=== PATIENT | male | born 1970 | race Caucasian/White ===

== ENCOUNTER → 2017-11-01 | Outpatient (CLI) | payer BC, OTHER | LOC: GMATM 12:07 | PROVIDERS: ATTEND Family Medicine | DX: E53.9 Vitamin B deficiency, unspecified (principal); E29.1 Testicular hypofunction; I10 Essential (primary) hypertension; M10.9 Gout, unspecified; E55.9 Vitamin D deficiency, unspecified ==

== ENCOUNTER 2018-12-02 15:17 | Emergency (ER) | payer BC, OTHER ==
[2018-12-02] MEDS ORDERED: ONDANSETRON INJ 4 MG/2 ML VIAL IV ONE (15:48)
[2018-12-02] MEDS ORDERED: ASPIRIN TABLET 325 MG TAB PO ONE (15:48)
[2018-12-02] MEDS ORDERED: SODIUM CHLORIDE 0.9% (FLUSH) 10 ML SYG IV PRN (15:48)
[2018-12-02] MEDS ORDERED: ONDANSETRON INJ 4 MG/2 ML VIAL ONE (16:01)
--- NOTE | 2018-12-02 16:01 | ED.PDOC ---
History of Present Illness - General Chief Complaint: Chest Pain/DE Stated Complaint: CHEST PAIN Time Seen by Provider: 12/02/18 15:57 Source: patient Exam Limitations: no limitations - History of Present Illness Initial Comments: PT PRESENTS TO THE ED FROM [facility] DUE TO SEVERAL WEEK HISTORY OF EXERTIONAL CHEST PAIN AND SOB. PT STATES THAT EKG PERFORMED AT [facility] WAS ABNORMAL AND PT WAS INSTRUCTED TO COME TO THE ED. PT DENIES SYMPTOMS AT THIS TIME. Timing/Duration: getting worse, intermittent Severity: moderate Location: substernal Activities at Onset: activity Prior Chest Pain/Cardiac Workup: stress test - 2007 Improving Factors: rest Worsening Factors: movement Nitro Today/Relief: no nitro taken today Aspirin Treatment Today: no aspirin today Associated Symptoms: shortness of breath Allergies/Adverse Reactions: Allergies NO KNOWN ALLERGY Allergy (Verified 12/02/18 15:51) Review of Systems - Review of Systems Constitutional: Denies: chills, fever EENTM: Denies: nose congestion, throat pain Respiratory: States: see HPI, short of breath. Denies: cough Cardiology: States: see HPI, chest pain, edema. Denies: palpitations Gastrointestinal/Abdominal: Denies: nausea, vomiting Genitourinary: Denies: dysuria, frequency Musculoskeletal: Denies: joint pain, joint swelling Skin: Denies: dryness, lesions Neurological: Denies: headache, numbness Endocrine: States: no symptoms reported Hematologic/Lymphatic: States: no symptoms reported Past Medical History (General) - Patient Medical History Hx Seizures: No Hx Stroke: No Hx Dementia: No Hx Asthma: No Hx of COPD: No Hx Cardiac Disorders: Yes Hx Congestive Heart Failure: No Hx Pacemaker: No Hx Hypertension: No Hx Thyroid Disease: No Hx Diabetes: No Hx Gastroesophageal Reflux: No Hx Renal Disease: No Hx Cancer: No Hx of HIV: No Hx Hepatitis C: No Hx MRSA: No Surgical History: other - Vaccination History Hx Tetanus, Diphtheria Vaccination: No Hx Influenza Vaccination: Yes Hx Pneumococcal Vaccination: No - Social History Hx Tobacco Use: No Hx Chewing Tobacco Use: No Hx Alcohol Use: No Hx Substance Use: No Hx Substance Use Treatment: No Hx Depression: No Feels Threatened In Home Enviroment: No Feels Threatened In a Relationship: No Hx Physical Abuse: No Hx Emotional Abuse: No Hx Suspected Abuse: No - Female History Patient is a Female of Child Bearing Age (10 -59 yrs old): No Patient : No Family Medical History - Family History Mother Family History: No Known Hx Family Asthma: No Hx Family Congestive Heart Failure: No Hx Family Hypertension: No Hx Family Stroke: No Physical Exam - Physical Exam General Appearance: Alert, Comfortable, No apparent distress, Well Developed, Well Groomed, Well Hydrated, Well Nourished Eyes, Ears, Nose, Throat Exam: normal ENT inspection Neck: full range of motion, supple Respiratory: lungs clear, normal breath sounds, no respiratory distress, no accessory muscle use Cardiovascular/Chest: regular rate, rhythm, no murmur Gastrointestinal/Abdominal: non tender, soft Extremity: non-tender, normal inspection, no pedal edema Neurologic: alert, normal mood/affect, oriented x 3 Skin Exam: normal color, warm/dry Progress - Progress Progress: 12/02/18 16:36 PT REMAINS CHEST PAIN FREE IN THE ED. LABS, DIAGNOSTICS AND PLAN DISCUSSED. WILL TRANSFER TO [facility] FOR CARDIOLOGY EVAL. - Results/Orders Results/Orders: Laboratory Tests 12/02/18 15:53 WBC 8.2 RBC 4.94 Hgb 15.3 Hct 44.6 MCV 90.2 MCH 31.1 H MCHC 34.4 RDW 12.9 Plt Count 183 MPV 8.7 Absolute Neuts (auto) 6.20 Absolute Lymphs (auto) 1.30 Absolute Monos (auto) 0.60 Absolute Eos (auto) 0.00 Absolute Basos (auto) 0.00 Neutrophils % 75.9 Lymphocytes % 16.0 L Monocytes % 7.3 Eosinophils % 0.3 L Basophils % 0.5 PT 9.7 INR 0.97 PTT (SP) 23.6 Sodium 139 Potassium 4.0 Chloride 108 Carbon Dioxide 22 Anion Gap 13.0 BUN 28 H Creatinine 0.81 BUN/Creatinine Ratio 34.6 H Random Glucose 107 H Serum Osmolality 283.5 Calcium 9.3 Magnesium 2.2 Creatine Kinase 154 CK-MB (CK-2) 3.0 CK-MB (CK-2) % Not Reportable Troponin I < 0.02 B-Natriuretic Peptide 8.8 - EKG/XRAY/CT EKG: Sinus - @69BPM, NL INTERVALS, NL AXIS, no ST T wave changes - NO OLD EKG FOR COMPARISON Departure - Departure Clinical Impression: Exertional chest pain Time of Disposition: 16:38 Disposition: Transfer to Hospital Condition: Good Departure Forms: ED Discharge - Pt. Copy, Patient Portal Self Enrollment Instructions: DI for Chest Pain Referrals: Daniele Shrestha III, MD [Primary Care Provider] - 1-2 Weeks Transfer to Outside Facility - Transfer Information Accepting Provider:: DR. VARGHESE Accepting Facility: [facility] Reason for Transfer: required specialist not available - CARDIOLOGY
--- NOTE | 2018-12-02 16:04 | RAD ---
EXAM DESCRIPTION: Chest,1 View CLINICAL HISTORY: 48 years Male, chest pain COMPARISON: Previous chest x-ray October 31, 2012 TECHNIQUE: AP portable chest. FINDINGS: Heart size is large with normal pulmonary vascularity. No consolidating infiltrate. No pulmonary mass or worrisome nodule. No pneumothorax or pleural effusion. Bones are unremarkable. IMPRESSION: No acute process is identified in the chest. Electronically signed by: Mahamed Molina MD 12/02/2018 4:02 PM CDT
[2018-12-02 18:44] VITALS: BP 125/87; TEMP 98.9; O2SAT 94
== END 2018-12-02 18:42 | disposition short-term general hospital (02) ==
LOC: ER 15:17
DX: R07.2 Precordial pain (principal); R06.02 Shortness of breath; I51.9 Heart disease, unspecified